=== PATIENT | male | born 1995 | race Two or more races ===

== ENCOUNTER 2017-02-11 20:14 | Emergency (ER) | payer OTHER ==
[~2017-02-11] VITALS: Ht 188 cm; Wt 90.9 kg
[2017-02-11 20:25] VITALS: BP 140/72
[2017-02-11] MEDS ORDERED: DERMABOND TOPICAL SKIN ADHESIVE TOP ONE (21:15)
== END 2017-02-11 21:38 | disposition home or self-care (01) ==
LOC: M ED 20:14
DX: S01.81XA Laceration without foreign body of other part of head, initial encounter (principal); W51.XXXA Accidental striking against or bumped into by another person, initial encounter; Y92.830 Public park as the place of occurrence of the external cause; Y93.67 Activity, basketball; Y99.9 Unspecified external cause status; F17.200 Nicotine dependence, unspecified, uncomplicated

== ENCOUNTER 2018-02-10 21:54 | Emergency (ER) | payer OTHER ==
[2018-02-10] MEDS ORDERED: ONDANSETRON 4MG/2ML VIAL (J2405) As Ordered (21:59)
[2018-02-10] MEDS: ONDANSETRON 4MG/2ML VIAL (J2405) IV (22:10)
[2018-02-10 22:44] LABS: AMPHETAMINES LEVEL URINE NEGATIVE (NEGATIVE); BARBITURATES URINE NEGATIVE (NEGATIVE); BENZODIAZEPINES URINE NEGATIVE (NEGATIVE); CANNABINOIDS URINE NEGATIVE (NEGATIVE); COCAINE METABOLITE URINE NEGATIVE (NEGATIVE); METHADONE URINE NEGATIVE (NEGATIVE); OPIATES URINE NEGATIVE (NEGATIVE); PHENCYCLIDINE URINE NEGATIVE (NEGATIVE)
[2018-02-10] MEDS: MULTIVITAMIN -ADULT INJECTION 10 ML, THIAMINE INJection 100 MG, FOLIC ACID 1 MG in NS 1... IV (22:53)
[2018-02-10 22:58] LABS: BASO % 0.2 % (0.0-1.0); EOS # 0.1 10^3/uL (0.0-0.50); EOS % 0.4 % (0.0-3.0); HEMATOCRIT 44.8 % (42.0-52.0); HEMOGLOBIN 15.2 g/dl (13.5-17.5); IMMATURE GRANULOCYTE % 0.4 % (0-3.0); LYMPH # 1.4 10^3/uL (1.5-6.5); LYMPH % 11.6 % (24.0-44.0); MEAN CORPUSCULAR HEMOGLOBIN 29.7 pg (27.0-33.0); MEAN CORPUSCULAR HGB CONC 33.9 g/dl (32.0-36.5); MEAN CORPUSCULAR VOLUME 87.5 fl (80.0-96.0); MONO # 0.4 10^3/uL (0.0-0.8); MONO % 3.3 % (0.0-5.0); NEUTROPHILS # 10.2 10^3/uL (1.8-7.7); NEUTROPHILS % 84.1 % (36.0-66.0); PLATELET COUNT, AUTOMATED 217 10^3/uL (150-450); RED BLOOD COUNT 5.12 10^6/uL (4.30-6.10); RED CELL DISTRIBUTION WIDTH 12.2 % (11.5-14.5); WHITE BLOOD COUNT 12.1 10^3/uL (4.0-10.0)
[2018-02-10 23:31] LABS: ACETAMINOPHEN LEVEL < 2.0 UG/ML (10.0-30.0); ALBUMIN 4.1 GM/DL (3.2-5.2); ALBUMIN/GLOBULIN RATIO 1.46 (1.00-1.93); ALKALINE PHOSPHATASE 82 U/L (45-117); ALT/SGPT 28 U/L (12-78); ANION GAP 9 MEQ/L (8-16); AST/SGOT 16 U/L (7-37); BILIRUBIN,DIRECT 0.1 MG/DL (0.0-0.2); BILIRUBIN,TOTAL 0.4 MG/DL (0.2-1.0); BLOOD UREA NITROGEN 13 MG/DL (7-18); CALCIUM LEVEL 8.3 MG/DL (8.5-10.1); CARBON DIOXIDE LEVEL 27 MEQ/L (21-32); CHLORIDE LEVEL 106 MEQ/L (98-107); CREATININE FOR GFR 0.99 MG/DL (0.70-1.30); ETHYL ALCOHOL (ETHANOL) 0.289 % (0.000-0.010); GLOMERULAR FILTRATION RATE > 60.0 (>60); GLUCOSE, FASTING 105 MG/DL (70-100); POTASSIUM SERUM 3.5 MEQ/L (3.5-5.1); SALICYLATE LEVEL < 1.7 MG/DL (5.0-30.0); SODIUM LEVEL 142 MEQ/L (136-145); THYROID STIMULATING HORMONE 0.593 uIU/ML (0.358-3.740); TOTAL PROTEIN 6.9 GM/DL (6.4-8.2)
[2018-02-11] MEDS ORDERED: diphenhydrAMINE INJ 50MG/ML VIAL (J1200) As Ordered (00:18)
[2018-02-11] MEDS ORDERED: HALOPERIDOL 5 MG/ML VIAL (J1630) As Ordered (00:18)
[2018-02-11] MEDS: HALOPERIDOL 5 MG/ML VIAL (J1630) IM (00:21)
[2018-02-11] MEDS: LORazepam 2 MG/ML VIAL (J2060) IM (00:21)
[2018-02-11] MEDS: diphenhydrAMINE INJ 50MG/ML VIAL (J1200) IM (00:21)
[2018-02-11] MEDS: LORazepam 2 MG/ML VIAL (J2060) IV (00:24)
[2018-02-11] MEDS: NS 1,000 ML IV ×2 (02:00→05:00)
== END 2018-02-11 08:00 | disposition home or self-care (01) ==
LOC: M ED 21:54
DX: F10.120 Alcohol abuse with intoxication, uncomplicated (principal); Z78.1 Physical restraint status
CPT/HCPCS: J1200

== ENCOUNTER 2018-07-27 20:57 | Emergency (ER) | payer OTHER ==
[2018-07-27] MEDS ORDERED: TRAZ-160 (21:16)
[2018-07-27] MEDS ORDERED: HYDR-3363 (21:16)
[2018-07-27] MEDS ORDERED: LIDOCAINE 1% SDV INJ 30 ML VIAL SC SCH (22:00)
[2018-07-27] MEDS ORDERED: cefTRIAXone SOD 1 GM VIAL (J0696) IM ONE (23:15)
[2018-07-27] MEDS ORDERED: LIDOCAINE 1% SDV 5 ML VIAL DILUENT ONE (23:15)
[2018-07-27] MEDS ORDERED: KEFL500C17 PO (23:17)
[2018-07-27 23:24] VITALS: BP 135/76
--- NOTE | 2018-07-28 01:03 | REP ---
Clinical: Trauma. Laceration. Foreign body. Technique: AP, lateral views left hand . Findings: The osseous structures and joint spaces are intact and normal. There is no evidence for acute fracture or dislocation. Surrounding soft tissues are unremarkable. No subcutaneous emphysema or radiodense foreign body. Impression: No foreign body or subcutaneous emphysema. No acute fracture or dislocation. Electronically Signed by Isael Mead MD 07/28/2018 12:55 A
== END 2018-07-27 23:48 | disposition home or self-care (01) ==
LOC: M ED 20:57
DX: S61.412A Laceration without foreign body of left hand, initial encounter (principal); W26.0XXA Contact with knife, initial encounter; Y92.89 Other specified places as the place of occurrence of the external cause; Y99.0 Civilian activity done for income or pay; Z88.8 Allergy status to other drugs, medicaments and biological substances
CPT/HCPCS: 12001; 73120; 96372; 99284; J0696

== ENCOUNTER 2018-08-16 00:23 | Emergency (ER) | payer OTHER ==
[~2018-08-16] VITALS: Ht 185.4 cm; Wt 100.0 kg
[~2018-08-16 00:23] MED LIST: HYDR-3363; KEFL500C17 PO; TRAZ-252
[2018-08-16 01:20] LABS: BASO # 0.1 10^3/uL (0.0-0.2); BASO % 0.4 % (0.0-1.0); EOS % 0.1 % (0.0-3.0); HEMATOCRIT 46.4 % (42.0-52.0); HEMOGLOBIN 16.1 g/dl (13.5-17.5); LYMPH # 1.3 10^3/uL (1.5-6.5); LYMPH % 9.6 % (24.0-44.0); MEAN CORPUSCULAR HEMOGLOBIN 30.4 pg (27.0-33.0); MEAN CORPUSCULAR HGB CONC 34.7 g/dl (32.0-36.5); MEAN CORPUSCULAR VOLUME 87.7 fl (80.0-96.0); MONO # 1.1 10^3/uL (0.0-0.8); MONO % 7.8 % (0.0-5.0); NEUTROPHILS # 11.3 10^3/uL (1.8-7.7); NEUTROPHILS % 81.7 % (36.0-66.0); PLATELET COUNT, AUTOMATED 231 10^3/uL (150-450); RED BLOOD COUNT 5.29 10^6/uL (4.30-6.10); WHITE BLOOD COUNT 13.9 10^3/uL (4.0-10.0)
--- NOTE | 2018-08-16 01:42 | REPVR ---
EXAM: CT Head Without Contrast EXAM DATE/TIME: 08/16/2018 12:43 AM CLINICAL HISTORY: 22 years old, male; Signs and symptoms; Altered mental status/memory loss; Additional info: Ams/intox TECHNIQUE: Imaging protocol: Axial computed tomography images of the head without contrast. Radiation optimization: All CT scans at this facility use at least one of these dose optimization techniques: automated exposure control; mA and/or kV adjustment per patient size (includes targeted exams where dose is matched to clinical indication); or iterative reconstruction. COMPARISON: No relevant prior studies available. FINDINGS: Brain: Normal. No hemorrhage. Unremarkable white matter. No mass effect. Ventricles: Normal. No ventriculomegaly. Bones/joints: Unremarkable. No acute fracture. Sinuses: Minimal inferior frontal sinus mucosal thickening. Mastoid air cells: Visualized mastoid air cells are well aerated. No mastoid effusion. Soft tissues: Unremarkable. IMPRESSION: 1. Minimal inferior frontal sinus disease. 2. Otherwise negative noncontrast head CT. This Electronically signed by: Nael Waite On 08/16/2018 01:41:37 AM
[2018-08-16 01:55] LABS: ACETAMINOPHEN LEVEL < 2.0 UG/ML (10.0-30.0); BLOOD UREA NITROGEN 15 MG/DL (7-18); CALCIUM LEVEL 9.2 MG/DL (8.5-10.1); CARBON DIOXIDE LEVEL 27 MEQ/L (21-32); CHLORIDE LEVEL 110 MEQ/L (98-107); CREATININE FOR GFR 1.41 MG/DL (0.70-1.30); ETHYL ALCOHOL (ETHANOL) 0.146 % (0.000-0.010); GLOMERULAR FILTRATION RATE > 60.0 (>60); GLUCOSE, FASTING 104 MG/DL (70-100); POTASSIUM SERUM 4.4 MEQ/L (3.5-5.1); SALICYLATE LEVEL < 1.7 MG/DL (5.0-30.0); SODIUM LEVEL 146 MEQ/L (136-145)
[2018-08-16 03:06] VITALS: BP 109/57
== END 2018-08-16 03:09 | disposition home or self-care (01) ==
LOC: M ED 00:23
DX: F98.9 Unspecified behavioral and emotional disorders with onset usually occurring in childhood and adolescence (principal); Z79.899 Other long term (current) drug therapy; Z88.7 Allergy status to serum and vaccine
CPT/HCPCS: 70450; 80048; 85025; 99284; G0480